=== PATIENT | male | born 1955 | race Caucasian/White ===

== ENCOUNTER 2018-06-11 13:40 | Emergency (ER) | payer OTHER ==
[~2018-06-11] VITALS: Ht 182.9 cm; Wt 80.7 kg
== END 2018-06-11 18:29 | disposition home or self-care (01) ==
LOC: ER 13:40
DX: T15.11XA Foreign body in conjunctival sac, right eye, initial encounter (principal)

== ENCOUNTER 2024-09-27 17:26 | Emergency (ER) | payer OTHER ==
[~2024-09-27] VITALS: Ht 190.5 cm; Wt 81.6 kg
[2024-09-27] MEDS ORDERED: BUDESONIDE 0.5 MG/2 ML AMPUL.NEB IH STA (18:01)
[2024-09-27] MEDS ORDERED: METHYLPREDNISOLONE SOD SUCC 40 MG VIAL IM STA (18:02)
[2024-09-27] MEDS ORDERED: LEVALBUTEROL HCL 1.25 MG/3 ML SOLUTION IH SCH (18:15)
[2024-09-27] MEDS ORDERED: METHYLPREDNISOLONE SOD SUCC 40 MG VIAL ONE (18:38)
[2024-09-27] MEDS ORDERED: LEVALBUTEROL HCL 0.63 MG/3 ML SOLUTION IH ONE (18:55)
[2024-09-27] MEDS ORDERED: BUDESONIDE 0.5 MG/2 ML AMPUL.NEB IH ONE (18:56)
[2024-09-27 19:11] LABS: HEMOGLOBIN 12.8 g/dL (13-16.00); MEAN CELL VOLUME 90.5 fL (80.0-100.00); MEAN CORPUSCULAR HEMOGLOBIN 30.6 pg (27.00-32.0); MEAN CORPUSCULAR HGB CONC 33.8 g/dl (32.0-36.0); PLATELET COUNT 277 K/uL (150-450); RED CELL DISTRIBUTION WIDTH 12.5 % (11.5-14.5)
== END 2024-09-27 21:52 | disposition home or self-care (01) ==
LOC: ER 17:28
DX: R09.81 Nasal congestion (principal); Z20.822 Contact with and (suspected) exposure to COVID-19; I10 Essential (primary) hypertension